=== PATIENT | female | born 2000 | race Caucasian/White ===

== ENCOUNTER → 2020-01-15 12:59 | Outpatient (CLI) | payer SELFPAY ==
--- NOTE | 2020-01-15 13:07 | ECHOD_ITS ---
Reason For Study: Murmur Procedure This was a 2D Doppler, Color Flow transthoracic echocardiogram. Exam performed in department. Left Ventricle Normal LV size. Left ventricular systolic function is normal. The estimated ejection fraction is 65 %. No evidence for diastolic dysfunction. No regional wall motion abnormalities noted. Right Ventricle Normal RV size. Normal systolic function. Atria Normal left atrium. Normal right atrium. No doppler evidence for ASD. Mitral Valve There is no mitral annular calcification. Normal mitral valve. Trivial mitral valve insufficiency. Tricuspid Valve Normal tricuspid valve. Trivial tricuspid valve insufficiency. Aortic Valve The aortic valve leaflets are not well visualized. Pulmonic Valve The pulmonic valve is not well visualized. Great Vessels Normal sized aortic root. Pericardium/Pleural No pericardial effusion. MMode/2D Measurements & Calculations LVIDd: 4.5 cm IVSd: 0.83 cm Ao root diam: 2.4 cm LVIDs: 3.0 cm LVPWd: 0.87 cm LA dimension: 3.3 cm FS: 33.9 % LAV(MOD-bp): 36.9 ml LA A4 area: 14.4 cm2 RA A4 area: 10.5 cm2 LAV(MOD-bp) Indexed: 21.7 ml/m2 LAV(MOD-sp2): 34.1 ml LAV(MOD-sp4): 36.8 ml Time Measurements MV dec time: 0.15 sec Doppler Measurements & Calculations MV E max tha: 146.4 cm/sec Lat Peak E' Tha: 27.4 cm/sec Med Peak E' Tha: 19.6 cm/sec MV A max tha: 83.4 cm/sec E/E' lat: 5.3 E/E' med: 7.5 MV E/A: 1.8 Ao V2 max: 183.0 cm/sec LV V1 max: 154.0 cm/sec PA V2 max: 116.5 cm/sec Ao max P.4 mmHg LV V1 max P.5 mmHg Interpretation Summary Left ventricular systolic function is normal. The estimated ejection fraction is 65 %. Trivial mitral valve insufficiency. Trivial tricuspid valve insufficiency. The aortic valve leaflets are not well visualized. No evidence for diastolic dysfunction. Ordering Physician: Hernandez Venegas Referring Physician: Hernandez Venegas Performed By: Austyn Burnham RCS
== END ==
PROVIDERS: PCP Family Medicine; Referring Provider Family Medicine; Visit Provider Family Medicine
DX: R01.1 Cardiac murmur, unspecified (principal)
CPT/HCPCS: 93306